=== PATIENT | female | born 2000 | race Caucasian/White ===

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

== ENCOUNTER → 2020-11-17 | Outpatient (CLI) | payer OTHER ==
--- NOTE | 2020-11-18 10:27 | XR ---
EXAMINATION TYPE: XR knee complete RT DATE OF EXAM: 11/17/2020 COMPARISON: 02/24/2017 HISTORY: Pain inferior to patella after strain injury 5 days ago. [id number] RT KNEE PAIN. TECHNIQUE: AP, oblique, and lateral views of the right knee obtained. FINDINGS: No acute fracture. No dislocation. Joint spaces and alignment are normal. Normal mineraliza tion. No significant soft tissue swelling or suprapatellar joint effusion. IMPRESSION: No acute fracture or dislocation.
== END | disposition home or self-care (01) ==
LOC: RADXRYALE 16:54
PROVIDERS: ATTEND Physician Assistant Medical
DX: M25.561 Pain in right knee (principal)

== ENCOUNTER → 2021-01-05 | Outpatient (CLI) | payer OTHER ==
--- NOTE | 2021-01-05 12:48 | MR ---
EXAMINATION TYPE: MR knee RT wo con DATE OF EXAM: 01/05/2021 COMPARISON: 12/22/2020 HISTORY: Right knee pain TECHNIQUE: Multiplanar, multisequence imaging of the right knee is performed without IV contrast. FINDINGS: MEDIAL MENISCUS: Anterior and posterior horns are intact without tear. LATERAL MENISCUS: Anterior and posterior horns are intact without tear. CRUCIATE LIGAMENTS: The anterior and posterior cruciate ligaments are intact and unremarkable. COLLATERAL LIGAMENTS: The medial collateral ligament and lateral collateral ligament complex are inta ct and unremarkable. EXTENSOR MECHANISM: Visualized quadriceps and patellar tendons are intact. EFFUSION: No significant suprapatellar joint effusion. POPLITEAL CYST: No popliteal/oro cyst. TRICOMPARTMENT SPACES: Tricompartmental articular cartilage is preserved. BONE MARROW SIGNAL: No focal abnormal marrow signal is appreciated. OTHER: No additional significant abnormality is appreciated. IMPRESSION: Unremarkable right knee.
== END | disposition home or self-care (01) ==
LOC: RADMRIMAIN 11:20
PROVIDERS: ATTEND Orthopaedic Surgery
DX: M25.561 Pain in right knee (principal)

== ENCOUNTER 2021-06-23 11:55 | Emergency (ER) | payer OTHER ==
[2021-06-23 12:11] VITALS: RESP 19
[2021-06-23] MEDS ORDERED: ONDANSETRON ODT 4 MG TAB PO STA (13:13)
[2021-06-23 14:22] LABS: Appearance,Urine Clear (Clear); Bilirubin,Urine Negative (Negative); Blood,Urine Small (Negative); Color,Urine Light Yellow; Glucose,Urine (UA) Negative (Negative); Ketones,Urine Negative (Negative); Leukocyte Esterase,Urine Negative (Negative); Mucus,Urine Rare /hpf; Nitrite,Urine Negative (Negative); Protein,Urine Negative (Negative); RBC,Urine 2 /hpf (0-5); Specific Gravity,Urine 1.014 (1.001-1.035); Squamous Epithelial Cell,Urine 1 /hpf (0-4); Urobilinogen,Urine <2.0 mg/dL (<2.0); WBC,Urine 1 /hpf (0-5)
--- NOTE | 2021-06-23 14:55 | XR ---
EXAMINATION TYPE: XR chest 2V DATE OF EXAM: 06/23/2021 COMPARISON: NONE TECHNIQUE: PA and lateral views submitted. HISTORY: Cough and pain FINDINGS: The lungs are clear and there is no pneumothorax, pleural effusion, or focal pneumonia. Heart size is normal. No overt failure. IMPRESSION: 1. No acute process.
--- NOTE | 2021-06-23 14:55 | XR ---
EXAMINATION TYPE: XR KUB DATE OF EXAM: 06/23/2021 COMPARISON: NONE HISTORY: Vomiting and pain TECHNIQUE: One view abdominal series FINDINGS: The osseous structures are intact. The bowel gas pattern is nonspecific. Multiple air-fluid levels a re seen. There is a paucity of bowel gas.. IMPRESSION: 1. Nonspecific abdomen. Findings can be seen with enteritis or ileus partial obstructive pattern exc luded correlate clinically.
--- NOTE | 2021-06-23 15:22 | ED ---
General Adult HPI - General Chief complaint: Nausea/Vomiting/Diarrhea Stated complaint: vomiting Source: patient Mode of arrival: ambulatory Limitations: no limitations - History of Present Illness Initial comments: A1-year-old previously healthy female presents emergency Department with reported fever, muscle aches, nausea with vomiting since June 03. She saw her primary care physician a week ago who placed her on steroids and antibiotic for bronchitis. She has been taking the medications as directed however denies having any improvement in her symptoms. No sick contacts or similar symptoms. Has not been tested for Covid. Denies any Covid exposure. No abdominal pain. No changes in her bowel or bladder habits. Denies concern for . No abnormal vaginal bleeding or discharge. No back or flank pain. No other alleviating, precipitating or modifying factors - Related Data Home Medications Medication Instructions Recorded Confirmed Azithromycin [Zithromax Z-pack (6 See Taper PO DIRECTED 06/23/21 06/23/21 tabs)] predniSONE 10 mg PO BID 06/23/21 06/23/21 Previous Rx's Medication Instructions Recorded Metoclopramide [Reglan] 10 mg PO TID PRN #21 tab 06/23/21 Allergies Allergy/AdvReac Type Severity Reaction Status Date / Time No Known Allergies Allergy Verified 06/23/21 14:05 Review of Systems ROS Statement: Those systems with pertinent positive or pertinent negative responses have been documented in the HPI. ROS Other: All systems not noted in ROS Statement are negative. Past Medical History Past Medical History: No Reported History History of Any Multi-Drug Resistant Organisms: Unobtainable Additional Past Surgical History / Comment(s): facial reconstruction 2004 Past Psychological History: No Psychological Hx Reported Smoking Status: Never smoker Past Alcohol Use History: None Reported Past Drug Use History: None Reported General Exam Limitations: no limitations Course Vital Signs 06/23/21 06/23/21 12:06 15:47 Temperature 98.3 F 98.9 F Pulse Rate 110 H 79 Respiratory 19 19 Rate Blood Pressure 126/84 129/78 O2 Sat by Pulse 98 98 Oximetry Medical Decision Making - Medical Decision Making Upon arrival patient is placed in a hallway 20. A thorough history and physical exam is performed. Patient is given an oral Zofran. She is swabbed for Covid which is positive. Patient provided a urine sample which is negative for hCG and positive for small blood. Patient maintain saturations greater than 98%. Heart rate does improve during hospitalization. Chest x-ray was performed which demonstrates no acute process. KUB is also performed which demonstrates nonspecific abdomen. The results are discussed the patient. She'll be discharged home at this time with antiemetics. She needs to follow up with her primary care doctor in 2-4 days or return for any new or worsening symptoms. Arnoldo moreno agreed to the treatment plan and was discharged home in stable condition - Lab Data Lab Results 06/23/21 06/23/21 06/23/21 Range/Units 12:11 13:34 13:34 Urine Color Light Yellow Urine Appearance Clear (Clear) Urine pH 6.0 (5.0-8.0) Ur Specific Drag[place] 1.014 (1.001-1.035) Urine Protein Negative (Negative) Urine Glucose (UA) Negative (Negative) Urine Ketones Negative (Negative) Urine Blood Small H (Negative) Urine Nitrite Negative (Negative) Urine Bilirubin Negative (Negative) Urine Urobilinogen <2.0 (<2.0) mg/dL Ur Leukocyte Esterase Negative (Negative) Urine RBC 2 (0-5) /hpf Urine WBC 1 (0-5) /hpf Ur Squamous Epith Cells 1 (0-4) /hpf Urine Mucus Rare H (None) /hpf Urine HCG, Qual Not Detected (Not Detectd) Coronavirus (PCR) Detected A (Not Detectd) Disposition Clinical Impression: COVID-19, Nausea & vomiting Disposition: HOME SELF-CARE Condition: Stable Instructions (If sedation given, give patient instructions): Coronavirus Disease 2019 (COVID-19) Additional Instructions: Please take the antinausea medication as directed. Follow up with your primary care doctor in 2-4 days. Return to the emergency room for any worsening symptoms Prescriptions: Metoclopramide [Reglan] 10 mg PO TID PRN #21 tab PRN Reason: GERD Is patient prescribed a controlled substance at d/c from ED?: No Referrals: Roberto Oseguera DO [Primary Care Provider] - 1-2 days Time of Disposition: 15:22
[2021-06-23 15:48] VITALS: BP 129/78; PULSE 79; TEMP 98.9
== END 2021-06-23 15:48 | disposition home or self-care (01) ==
LOC: EC 11:55
DX: U07.1 COVID-19 (principal); R11.2 Nausea with vomiting, unspecified
CPT/HCPCS: 71046; 74018; 81001; 81025; 87635; 99284

== ENCOUNTER → 2021-11-02 | Outpatient (CLI) | payer OTHER ==
--- NOTE | 2021-11-03 02:00 | MR ---
EXAMINATION TYPE: MR knee RT wo con DATE OF EXAM: 11/02/2021 COMPARISON: 01/05/2021 HISTORY: Right knee pain, hx soccer injury. Multiplanar multi echo imaging of the right knee without contrast. The anterior and posterior cruciate ligaments are intact. Patellar tendon is intact. Collateral ligam ents are intact. The medial and lateral menisci appear fairly normal. No evidence of a tear. No evidence of a fracture . No bone edema identified. Patella is intact. There is minimal knee joint effusion. IMPRESSION: There is a very small knee joint effusion that could be some mild nonspecific synovitis. Otherwise ne gative exam. No ligament or meniscal tear.
== END | disposition home or self-care (01) ==
LOC: RADMRIMAIN 15:17
PROVIDERS: ATTEND Physician Assistant
DX: M25.461 Effusion, right knee (principal)

== ENCOUNTER → 2022-08-04 | Outpatient (CLI) | payer OTHER ==
--- NOTE | 2022-08-04 10:08 | XR ---
EXAMINATION TYPE: XR shoulder complete RT DATE OF EXAM: 08/04/2022 COMPARISON: NONE HISTORY: Pain TECHNIQUE: Three views are submitted. FINDINGS: The osseous structures are intact. There is no acute fracture or dislocation. The AC joint is maint ained. IMPRESSION: 1. No acute process.
== END | disposition home or self-care (01) ==
LOC: RADXRYALE 09:37
PROVIDERS: ATTEND Physician Assistant
DX: M25.511 Pain in right shoulder (principal)